=== PATIENT | male | born 1970 | race Caucasian/White ===

== ENCOUNTER 2017-02-22 11:00 | Emergency (ER) | payer OTHER ==
[~2017-02-22] VITALS: Ht 180.3 cm; Wt 83.9 kg
[2017-02-22 11:12] VITALS: BP 114/70
== END 2017-02-22 11:50 | disposition home or self-care (01) ==
LOC: ER 11:01
DX: M25.511 Pain in right shoulder (principal); F17.200 Nicotine dependence, unspecified, uncomplicated
CPT/HCPCS: 73030-TC; A4606; Z7610

== ENCOUNTER 2017-05-16 19:24 | Inpatient (IN) | payer OTHER ==
[~2017-05-16] VITALS: Ht 180.3 cm; Wt 81.6 kg
--- NOTE | 2017-05-16 19:48 | NUR ---
PT BIB SELF AMBULATORY TO ER BED 6, PT C/O ABD PAIN WITH DIARRHEA SINCE MID MORNING. PT PLACED IN GOWN AND ON VS/CENTER MEDICAL SPECIALIST. PT VSS/RESP EVEN UNLABORED/NAD NOTED/SKIN WARM AND DRY/AOX 4. AWAITING MD STERN.
--- NOTE | 2017-05-16 19:51 | NUR ---
AT BEDSIDE FOR EVAL
[2017-05-16] MEDS ORDERED: ONDANSETRON HCL/PF 4 MG/2 ML VIAL ONE (19:53)
--- NOTE | 2017-05-16 19:58 | NUR ---
18G TO LAC USING ASEPTIC TECH, BLOOD DRAWN AND HANDED OVER TO LAB AT BEDSIDE. IV FLUSHES EASILY WITH NS.
[2017-05-16] MEDS ORDERED: IV NS 0.9% 500 ML BAG IV ONE (20:00)
[2017-05-16] MEDS ORDERED: ONDANSETRON HCL/PF 4 MG/2 ML VIAL IVP ONE (20:00)
[2017-05-16 20:01] LABS: BASOPHILS # (AUTO) 0.1 /CMM (0.0-0.2); BASOPHILS % (AUTO) 0.3 % (0.0-2.0); EOSINOPHILS % (AUTO) 0.1 % (0.0-6.0); HEMATOCRIT 52 % (39-51); HEMOGLOBIN 17.3 g/dL (13.5-17.5); LYMPHOCYTES # (AUTO) 1.6 /CMM (0.8-4.8); LYMPHOCYTES % (AUTO) 9.3 % (20.0-44.0); MEAN CORPUSCULAR HEMOGLOBIN 28 PG (26.0-33.0); MEAN CORPUSCULAR HGB CONC 33 g/dl (31.0-36.0); MEAN CORPUSCULAR VOLUME 84 fL (80-96); MONOCYTES # (AUTO) 0.9 /CMM (0.1-1.30); MONOCYTES % (AUTO) 4.9 % (2.0-12.0); NEUTROPHILS # (AUTO) 14.9 /CMM (1.8-8.9); NEUTROPHILS % (AUTO) 85.4 % (43.0-81.0); PLATELET COUNT (AUTO) 285 /CMM (150-450); RDW COEFFICIENT OF VARIATION 12.9 (11.5-15.0); RED BLOOD CELL COUNT(AUTO) 6.23 MIL/uL (4.5-6.0); WHITE BLOOD COUNT (AUTO) 17.5 K/uL (4.3-11.0)
[2017-05-16 20:11] LABS: CALCIUM, SERUM 10.7 mg/dL (8.5-10.1); CREATININE 4.2 mg/dL (0.6-1.3)
--- NOTE | 2017-05-16 20:15 | NUR ---
TECH AT BEDSIDE FOR EKG PER MD ORDERS.
[2017-05-16 20:17] LABS: ALBUMIN 4.7 g/dL (3.4-5.0); BILIRUBIN,DIRECT 0.2 mg/dL (0.0-0.2); BILIRUBIN,TOTAL 0.9 mg/dL (0.2-1.0); TOTAL PROTEIN, SERUM 8.9 g/dL (6.4-8.2)
--- NOTE | 2017-05-16 20:26 | NUR ---
Edwardo amato in [facility] - 05/16/17 at 6 by RADHA MD AT [facility] SPEAKING WITH PT
--- NOTE | 2017-05-16 20:26 | NUR ---
AT BEDSIDE SPEAKING WITH PT.
[2017-05-16] MEDS ORDERED: IV NS 0.9% 1,000 ML IV ONE ×2 (20:30→21:00)
[2017-05-16] MEDS ORDERED: POTASSIUM CHLORIDE 20 MEQ TAB.PRT.SR PO ONE ×2 (20:35→21:00)
--- NOTE | 2017-05-16 20:54 | NUR ---
PT BEING ADM TO TELE ROOM 320 BED 2, REPORT GIVEN TO KAYLA FOR PAPITO.
[2017-05-16] MEDS ORDERED: LISI10TA5 PO (20:55)
[2017-05-16] MEDS ORDERED: ZOLP10TA2 PO (20:55)
[2017-05-16] MEDS ORDERED: DARU1TAB PO (20:55)
[2017-05-16] MEDS ORDERED: DOLU10TA PO (20:55)
[2017-05-16] MEDS ORDERED: IV NS 0.9% 1,000 ML IV PRN (21:03)
[2017-05-16 21:05] VITALS: BP 119/68
--- NOTE | 2017-05-16 21:05 | NUR ---
RN NOTES RECEIVED PATIENT FROM ER FOR DX ACUTE RENAL FAILURE. AO X 3, ABLE TO MAKE NEEDS KNOWN. NO ACUTE DISTRESS NOTED. DENIES PAIN AT THIS TIME IF LYING DOWN ON BED. IV SITE PATENT, INTACT; FLUSHED. SKIN ASSESSMENT DONE. TELE READING SR HR 91. ON LOW BED WITH BILATERAL UPPER SIDE RAILS UP. CALL LIGHT WITHIN EASY REACH. WILL CONTINUE TO MONITOR.
[2017-05-16] MEDS ORDERED: MAG HYDROX/AL HYDROX/SIMETH 30 ML UDC PO PRN (21:30)
[2017-05-16] MEDS ORDERED: HYDROCODONE/APAP 5/325MG 1 EACH TABLET PO PRN (21:30)
[2017-05-16] MEDS ORDERED: MAGNESIUM HYDROXIDE 30 ML UDC PO PRN (21:30)
[2017-05-16] MEDS ORDERED: ONDANSETRON HCL/PF 4 MG/2 ML VIAL IVP PRN (21:30)
[2017-05-16] MEDS ORDERED: ACETAMINOPHEN 325 MG TABLET PO PRN (21:30)
[2017-05-16] MEDS ORDERED: HYDROCODONE/APAP 5/325MG 1 EACH TABLET ONE (21:56)
[2017-05-16 21:57] LABS: CREATINE KINASE MB 61.5 ng/mL (0-3.6)
[2017-05-16] MEDS ORDERED: MISCELLANEOUS MED 1 EA EA XX SCH ×2 (22:00)
[2017-05-16] MEDS: IV NS 0.9% 1,000 ML IV PRN (22:14)
[2017-05-16] MEDS ORDERED: ZOLPIDEM TARTRATE 5 MG TABLET ONE (23:06)
[2017-05-16] MEDS: ZOLPIDEM TARTRATE 5 MG TABLET PO PRN (23:08)
[2017-05-17] VITALS: BP_SYST 122; BP_SYST 132; BP_DIAS 70; BP_DIAS 81
[2017-05-17 04:00] VITALS: BP_SYST 104; BP_SYST 133; BP_DIAS 64; BP_DIAS 80
[2017-05-17 06:40] LABS: BASOPHILS % (AUTO) 0.2 % (0.0-2.0); EOSINOPHILS % (AUTO) 0.3 % (0.0-6.0); HEMATOCRIT 48 % (39-51); HEMOGLOBIN 16.5 g/dL (13.5-17.5); LYMPHOCYTES # (AUTO) 1.5 /CMM (0.8-4.8); LYMPHOCYTES % (AUTO) 12.9 % (20.0-44.0); MEAN CORPUSCULAR HEMOGLOBIN 29 PG (26.0-33.0); MEAN CORPUSCULAR HGB CONC 34 g/dl (31.0-36.0); MEAN CORPUSCULAR VOLUME 84 fL (80-96); MONOCYTES % (AUTO) 8.2 % (2.0-12.0); NEUTROPHILS # (AUTO) 9.3 /CMM (1.8-8.9); NEUTROPHILS % (AUTO) 78.4 % (43.0-81.0); PLATELET COUNT (AUTO) 192 /CMM (150-450); RED BLOOD CELL COUNT(AUTO) 5.76 MIL/uL (4.5-6.0); WHITE BLOOD COUNT (AUTO) 11.9 K/uL (4.3-11.0)
[2017-05-17 06:48] LABS: CALCIUM, SERUM 9.4 mg/dL (8.5-10.1); CREATININE 3.3 mg/dL (0.6-1.3); MAGNESIUM 2.6 mg/dL (1.8-2.4); PHOSPHORUS 4.3 mg/dL (2.5-4.9); POTASSIUM 3.2 mmol/L (3.5-5.1)
--- NOTE | 2017-05-17 06:57 | NUR ---
RN NOTES PATIENT ASLEEP, EASILY AROUSABLE. RESPIRATIONS EVEN. NO SIGNS OF PAIN NOTED. NEEDS ATTENDED. SAFETY PRECAUTIONS AND COMFORT MEASURES IN PLACE. WILL GIVE REPORT TO DAY SHIFT FOR CONTINUITY OF CARE.
--- NOTE | 2017-05-17 07:00 | NUR ---
RN INITIAL NOTES: PATIENT RESTING IN BED. ALERT ORIENTED X4. DENIES PAIN AT THE MOMENT. NONLABORED BREATHING NOTED ON ROOM AIR. IV SITE PATENT AND INTACT. WILL CONTINUE TO MONITOR PATIENT.
[2017-05-17 07:04] LABS: THYROID STIMULATING HORMONE 2.251 uIU/mL (0.358-3.74)
[2017-05-17 07:21] LABS: CREATINE KINASE MB 67.4 ng/mL (0-3.6)
[2017-05-17] MEDS: FAMOTIDINE (20 MG) 20 MG TABLET PO SCH (08:13)
[2017-05-17 09:20] LABS: BILIRUBIN,URINE NEGATIVE (NEGATIVE); BLOOD, URINE 3+ Ery/uL (NEGATIVE); KETONES,URINE TRACE (NEGATIVE); LEUKOCYTE ESTERASE ,URINE NEGATIVE (NEGATIVE); NITRITE, URINE NEGATIVE (NEGATIVE); PH,URINE 5.5 (5.0-8.0); PROTEIN,URINE 1+ mg/dl (NEGATIVE); UGLUCOSE 1+ mg/dL (NEGATIVE); UROBILINOGEN,URINE 0.2 EU/dL (0.2)
[2017-05-17 09:31] LABS: COLOR,URINE YELLOW (YELLOW)
[2017-05-17 09:33] LABS: APPEARANCE,URINE CLEAR (CLEAR)
[2017-05-17 09:35] LABS: BACTERIA,URINE Rare /HPF (None Seen); RBC,URINE 0-2 /HPF (0-2); SQUAMOUS EPITHELIAL CELL,UR Rare /HPF (None Seen)
[2017-05-17 09:36] LABS: COARSE GRANULAR CASTS,URINE Few /LPF (None Seen)
[2017-05-17] MEDS: IV NS 0.9% 1,000 ML IV PRN ×2 (10:14→16:00)
--- NOTE | 2017-05-17 11:21 | NUR ---
WOUND CARE CONSULT: PT PRESENTS WITH CURRENT JOSE SCORE OF 22. PT INDEPENDENT WITH MOBILITY AND CONTINENT. SMALL WHITE AREA ON RT GREAT TOENAIL. PT STATES IS TAKING FLUCONAZOLE PER HIS PMD. DEFER TO MD FOR TOENAIL. WILL SEE PRN.
[2017-05-17 11:48] VITALS: BP 113/78
[2017-05-17] MEDS ORDERED: POTASSIUM CHLORIDE 20 MEQ TAB.PRT.SR PO SCH (12:00)
[2017-05-17 16:00] VITALS: BP_SYST 124; BP_SYST 97; BP_DIAS 63; BP_DIAS 75
--- NOTE | 2017-05-17 17:21 | NUR ---
RN NOTES: DR CR ORDERED 20 MED KDUR TIMES 1, TO REPLACE POTASSIUM LEVELS
[2017-05-17] MEDS ORDERED: POTASSIUM CHLORIDE 20 MEQ TAB.PRT.SR PO ONE (17:30)
--- NOTE | 2017-05-17 19:30 | NUR ---
MS RN NOTE: PATIENT RESTING IN BED, NO ACUTE DISTRESS NOTED. BREATHING EVEN AND UNLABORED, NO SOB NOTED. IV TO LAC IN PLACE, INFUSING NS AT 200 ML/HR. BED LOCKED AND IN LOWEST POSITION, CALL LIGHT IN REACH. WILL CONTINUE TO MONITOR.
--- NOTE | 2017-05-17 19:49 | NUR ---
RN CLOSING NOTES: PATIENT RESTING IN BED. ALERT ORIENTED X4. DENIES PAIN AT THE MOMENT. NONLABORED BREATHING NOTED ON ROOM AIR. IV SITE PATENT AND INTACT.IV FLUIDS RUNNING, STOOL SENT FOR CDIFF. DOCTOR SHAYE AWARE OF PATIENT'S HISTORY OF TAKING FLUCONAZOLE 200 MG, X2 TABLETS EVERY 8 DAYS FOR 4 YEARS. DURING SHIFT, PATIENT KEPT CLEAN AND DRY. ENCOURAGED TO TURN AND REPOSITION EVERY 2 HOURS. MEDICATIONS BROUGHT FROM HOME WERE TAKEN TO PHARMACY. BED IN LOWEST LOCKED POSITION. WILL CONTINUE TO MONITOR PATIENT.
[2017-05-17] MEDS ORDERED: TIVICAY 50MG TABLET PO SCH (20:00)
[2017-05-17] MEDS: ZOLPIDEM TARTRATE 5 MG TABLET PO PRN (20:29)
--- NOTE | 2017-05-17 20:45 | NUR ---
MS RN NOTE: PATIENT REQUEST FOR SLEEPING MEDICATION. AMBIEN 10MG ORAL GIVEN PER MD ORDER. WILL CONTINUE TO MONITOR.
[2017-05-17 20:47] VITALS: BP_SYST 104; BP_SYST 125; BP_DIAS 64; BP_DIAS 80
[2017-05-18] MEDS: IV NS 0.9% 1,000 ML IV PRN ×2 (03:10→09:02)
--- NOTE | 2017-05-18 06:05 | NUR ---
MS RN NOTE: PATIENT RESTING IN BED, NO ACUTE DISTRESS NOTED. BREATHING EVEN AND UNLABORED, NO SOB NOTED. IV TO LAC IN PLACE, INFUSING NS AT 200 ML/HR. PATIENT CONTINUES TO HAVE EPISODES OF DIARRHEA, WITH 3 LOOSE BM THROUGHOUT SHIFT. BED LOCKED AND IN LOWEST POSITION, CALL LIGHT IN REACH. WILL ENDORSE TO DAY NURSE TO CONTINUE WITH PLAN OF CARE.
[2017-05-18 07:53] LABS: BASOPHILS % (AUTO) 0.2 % (0.0-2.0); EOSINOPHILS # (AUTO) 0.1 /CMM (0.0-0.7); EOSINOPHILS % (AUTO) 1.3 % (0.0-6.0); HEMATOCRIT 42 % (39-51); HEMOGLOBIN 14.2 g/dL (13.5-17.5); LYMPHOCYTES % (AUTO) 19.4 % (20.0-44.0); MEAN CORPUSCULAR HEMOGLOBIN 29 PG (26.0-33.0); MEAN CORPUSCULAR HGB CONC 34 g/dl (31.0-36.0); MEAN CORPUSCULAR VOLUME 85 fL (80-96); MONOCYTES # (AUTO) 0.4 /CMM (0.1-1.30); MONOCYTES % (AUTO) 8.2 % (2.0-12.0); NEUTROPHILS # (AUTO) 3.6 /CMM (1.8-8.9); NEUTROPHILS % (AUTO) 70.9 % (43.0-81.0); PLATELET COUNT (AUTO) 147 /CMM (150-450); RDW COEFFICIENT OF VARIATION 14.1 (11.5-15.0); RED BLOOD CELL COUNT(AUTO) 4.94 MIL/uL (4.5-6.0); WHITE BLOOD COUNT (AUTO) 5.1 K/uL (4.3-11.0)
[2017-05-18 08:00] VITALS: BP 119/70
[2017-05-18] MEDS: FAMOTIDINE (20 MG) 20 MG TABLET PO SCH (08:18)
[2017-05-18 08:31] LABS: CALCIUM, SERUM 8.3 mg/dL (8.5-10.1); CREATININE 1.5 mg/dL (0.6-1.3); PHOSPHORUS 2.5 mg/dL (2.5-4.9); POTASSIUM 3.5 mmol/L (3.5-5.1)
--- NOTE | 2017-05-18 15:55 | NUR ---
DISTRICT ATTORNEY NOTES DISCHARGE INSTRUCTIONS GIVEN TO THE PATIENT AND ABLE TO UNDERSTAND. ALL PAPERWORK SIGNED AND BELONGINGS ACCOUNTED FOR AND MEDICATIONS RETURNED. IV DISCONNECTED AND PRESSURE APPLIED, NO BLEEDING NOTED AT THE SITE. FLU SHOT NOT NEEDED PATIENT WAS VACCINATED IN APRIL. PATIENT LEFT IN STABLE CONDITION, AMBULATORY, WITH FAMILY. DISCHARGED TO HOME. NO SOB OR DISTRESS, PATIENT DENIES PAIN.
== END 2017-05-18 15:51 | disposition home or self-care (01) | DRG 683 ==
LOC: ER 19:27 → TELE 20:42 → MED 05-17 10:23
PROVIDERS: ADMIT Nurse Practitioner Acute Care; ATTEND Nurse Practitioner Acute Care
DX: N17.0 Acute kidney failure with tubular necrosis (principal); M62.82 Rhabdomyolysis; I50.9 Heart failure, unspecified; I11.0 Hypertensive heart disease with heart failure; E87.6 Hypokalemia; E86.0 Dehydration; D72.829 Elevated white blood cell count, unspecified; E78.5 Hyperlipidemia, unspecified; Z79.899 Other long term (current) drug therapy
CPT/HCPCS: 36415; 71010-TC; 76700-TC; 80048-TC; 80061-TC; 80076-TC; 81000-TC; 82550-TC; 82553-TC; 83690-TC; 83735-TC; 84100-TC; 84443-TC; 85025-TC; 87081-TC; A4606; J2405; J7030; J7040; Z7610

== ENCOUNTER 2017-05-25 13:57 | Outpatient (CLI) | payer OTHER, MEDICAID ==
[~2017-05-25 13:57] MED LIST: DARU1TAB PO; DOLU10TA PO; LISI10TA5 PO; ZOLP10TA2 PO
[2017-05-25 14:01] VITALS: BP 127/72
== END 2017-05-25 23:59 | disposition home or self-care (01) ==
LOC: MSC 13:57
PROVIDERS: ATTEND Internal Medicine
DX: Z51.89 Encounter for other specified aftercare (principal); I10 Essential (primary) hypertension; G47.00 Insomnia, unspecified; F41.8 Other specified anxiety disorders

== ENCOUNTER 2018-03-13 18:11 | Inpatient (IN) | payer OTHER, BC ==
[~2018-03-13] VITALS: Ht 177.8 cm; Wt 88.1 kg
[2018-03-13 18:46] LABS: BASOPHILS # (AUTO) 0.1 /CMM (0.0-0.2); BASOPHILS % (AUTO) 0.9 % (0.0-2.0); EOSINOPHILS % (AUTO) 1.1 % (0.0-6.0); HEMATOCRIT 46 % (39-51); HEMOGLOBIN 15.3 g/dL (13.5-17.5); LYMPHOCYTES # (AUTO) 1.9 /CMM (0.8-4.8); LYMPHOCYTES % (AUTO) 19.4 % (20.0-44.0); MEAN CORPUSCULAR HEMOGLOBIN 27 PG (26.0-33.0); MEAN CORPUSCULAR HGB CONC 34 g/dl (31.0-36.0); MEAN CORPUSCULAR VOLUME 81 fL (80-96); MONOCYTES % (AUTO) 10.2 % (2.0-12.0); NEUTROPHILS # (AUTO) 6.9 /CMM (1.8-8.9); NEUTROPHILS % (AUTO) 68.4 % (43.0-81.0); PLATELET COUNT (AUTO) 270 /CMM (150-450); RDW COEFFICIENT OF VARIATION 13.7 (11.5-15.0); RED BLOOD CELL COUNT(AUTO) 5.62 MIL/uL (4.5-6.0)
[2018-03-13] MEDS ORDERED: MAG HYDROX/AL HYDROX/SIMETH 30 ML UDC ONE (18:47)
[2018-03-13 18:55] LABS: CALCIUM, SERUM 8.8 mg/dL (8.5-10.1); CARBON DIOXIDE 23 mmol/L (21-32); CHLORIDE 96 mmol/L (98-107); CREATININE 6.6 mg/dL (0.6-1.3); GLUCOSE 108 mg/dL (74-106); POTASSIUM 3.4 mmol/L (3.5-5.1); SODIUM SERUM 133 mmol/L (136-145); UREA NITROGEN, BLOOD 55 mg/dL (7-18)
[2018-03-13] MEDS ORDERED: MAG HYDROX/AL HYDROX/SIMETH 30 ML UDC PO ONE (19:00)
[2018-03-13] MEDS ORDERED: IV NS 0.9% 1,000 ML BAG IV ONE (19:00)
[2018-03-13 19:01] LABS: ALANINE AMINOTRANSFERASE 43 U/L (12-78); ALBUMIN 3.8 g/dL (3.4-5.0); ALKALINE PHOSPHATASE 94 U/L (46-116); ASPARTATE AMINOTRANSFERASE 38 U/L (15-37); BILIRUBIN,DIRECT 0.1 mg/dL (0.0-0.2); BILIRUBIN,TOTAL 0.5 mg/dL (0.2-1.0); LIPASE 143 U/L (73-393); TOTAL PROTEIN, SERUM 7.8 g/dL (6.4-8.2)
[2018-03-13 19:03] LABS: TROPONIN I < 0.017 ng/mL (0.00-0.056)
[2018-03-13] MEDS ORDERED: POTASSIUM CHLORIDE 20 MEQ TAB.PRT.SR PO ONE (19:30)
[2018-03-13 19:45] LABS: ALCOHOL, BLOOD < 3 mg/dL (0-0)
[2018-03-13 19:47] LABS: APPEARANCE,URINE Cloudy (CLEAR); BILIRUBIN,URINE SMALL (NEGATIVE); BLOOD, URINE Large Ery/uL (NEGATIVE); COLOR,URINE Dark (YELLOW); KETONES,URINE Negative (NEGATIVE); LEUKOCYTE ESTERASE ,URINE Negative (NEGATIVE); NITRITE, URINE Negative (NEGATIVE); PH,URINE 5.5 (5.0-8.0); PROTEIN,URINE >=300 mg/dl (NEGATIVE); UGLUCOSE 100 MG/DL mg/dL (NEGATIVE); UROBILINOGEN,URINE 0.2 EU/dL (0.2)
[2018-03-13 19:55] LABS: BACTERIA,URINE 3+ /HPF (None Seen); MUCUS,URINE Moderate /LPF (None Seen); SQUAMOUS EPITHELIAL CELL,UR None Seen /HPF (None Seen); WBC,URINE NONE SEEN /HPF (0-3)
--- NOTE | 2018-03-13 20:00 | NUR ---
PT ASSIGNED TO BED 322-2
--- NOTE | 2018-03-13 20:10 | NUR ---
MANAGER COMPETITIVE INTELLIGENCE NOTES Patient came to unit via gurney. Patient is alert, oriented x 4. Breathing even and unlabored. Not in any distress. Swartz catheter in place, draining clear yellow urine. Peripheral IV in place. IV site patent and intact. Tele monitor in place, sinus rhythm 91. No complaints of discomfort as of this time. Patient stated that he is a former smoker, he quit smoking last July 2017. No skin issues. Patient able to walk to the bathroom with standby assist. Reminded him to call whenever he needs to go as a safety precaution. Patient denies drinking and using of recreational drugs. He denies pain upon urination. Skin intact. Oriented to call anderson. Safety measures in place. Call anderson within reach. Bed in low locked position. Will continue to monitor
[2018-03-13 20:12] LABS: CREATINE KINASE, TOTAL 1063 U/L (39-308)
[2018-03-13] MEDS ORDERED: ACETAMINOPHEN 325 MG TABLET PO PRN (20:30)
[2018-03-13] MEDS ORDERED: Z GUARD REMEDY 2 OZ OINT TP PRN (20:30)
[2018-03-13] MEDS ORDERED: ONDANSETRON HCL/PF 4 MG/2 ML VIAL IVP PRN (20:30)
[2018-03-13] MEDS ORDERED: MAGNESIUM HYDROXIDE 30 ML UDC PO PRN (20:30)
[2018-03-13] MEDS ORDERED: HYDROCODONE/APAP 5/325MG 1 EACH TABLET PO PRN (20:30)
[2018-03-13 21:15] VITALS: BP 114/66
[2018-03-13 21:46] LABS: LYMPHOCYTES % (MANUAL) 21 % (16-48); MONOCYTES % (MANUAL) 8 % (0-11.0); NEUTROPHILS % (MANUAL) 71 (42-76)
[2018-03-13] MEDS: IV NS 0.9% 1,000 ML IV SCH (22:07)
[2018-03-13] MEDS: ZOLPIDEM TARTRATE 10 MG TABLET PO PRN (22:25)
[2018-03-13] MEDS: ZOLPIDEM TARTRATE 5 MG TABLET PO PRN (22:25)
--- NOTE | 2018-03-13 22:27 | NUR ---
CARAMEL CANDY MAKER HELPER NOTES Patient requested for ambien. He takes 15mg at home. Ambien 15mg given as ordered
--- NOTE | 2018-03-13 22:50 | NUR ---
DIE MOUNTER NOTES Patient went to the bathroom, reminded him to call for assistance as a safety precaution. As per patient," I'm okay. I don't feel unbalanced when I stand up." Patient gave stool sample. Sample for lab to chart picker
[2018-03-14] VITALS: BP 115/67
[2018-03-14 04:00] VITALS: BP_SYST 101; BP_SYST 93; BP_SYST 97; BP_DIAS 55; BP_DIAS 59; BP_DIAS 60
[2018-03-14] MEDS: IV NS 0.9% 1,000 ML IV SCH (05:50)
[2018-03-14 06:15] LABS: BASOPHILS % (AUTO) 0.4 % (0.0-2.0); EOSINOPHILS % (AUTO) 0.9 % (0.0-6.0); HEMATOCRIT 46 % (39-51); HEMOGLOBIN 14.9 g/dL (13.5-17.5); LYMPHOCYTES % (AUTO) 17.6 % (20.0-44.0); MEAN CORPUSCULAR HEMOGLOBIN 27 PG (26.0-33.0); MEAN CORPUSCULAR HGB CONC 32 g/dl (31.0-36.0); MEAN CORPUSCULAR VOLUME 84 fL (80-96); MONOCYTES # (AUTO) 0.6 /CMM (0.1-1.30); MONOCYTES % (AUTO) 10.4 % (2.0-12.0); NEUTROPHILS # (AUTO) 4.2 /CMM (1.8-8.9); NEUTROPHILS % (AUTO) 70.7 % (43.0-81.0); PLATELET COUNT (AUTO) 200 /CMM (150-450); RDW COEFFICIENT OF VARIATION 14.1 (11.5-15.0); RED BLOOD CELL COUNT(AUTO) 5.48 MIL/uL (4.5-6.0)
[2018-03-14 06:33] LABS: CALCIUM, SERUM 8.3 mg/dL (8.5-10.1); CREATININE 4.5 mg/dL (0.6-1.3); MAGNESIUM 2.7 mg/dL (1.8-2.4); POTASSIUM 3.6 mmol/L (3.5-5.1)
--- NOTE | 2018-03-14 07:21 | NUR ---
MICROSYSTEMS ENGINEER OPENING NOTES RECEIVED PATIENT AWAKE IN BED IN NO ACUTE SIGNS OF DISTRESS. A/O X4. ABLE TO COMMUNICATE VERBALLY WITH NO C/O PAIN OR DISCOMFORTS AT THIS TIME. ON ROOM AIR, BREATHING EVEN AND UNLABORED. ON TELE MONITORING WITH CURRENT READING OF SR WITH HR OF 88, NO C/O OF CARDIAC DISTRESS VOICED. IV ACCESS ON LEFT FA INTACT AND PATENT, IVF OF NS @ 125 ML/HR INFUSING WELL, NO S/S OF INFILTRATIONS NOTED. CAMPOS IN PLACE DRAINING SAURAV COLORED URINE TO URINARY BAG. SAFETY MEASURES IN PLACE. BED IN LOW/LOCKED POSITION WITH SR UP X2. CALL LIGHT WITHIN EASY REACH. REMINDED PT TO CALL FOR ASSISTANCE WHEN OOB. WILL CONTINUE TO MONITOR.
--- NOTE | 2018-03-14 07:24 | NUR ---
AVIATION ENGINEER CLOSING NOTES Patient in bed, alert, oriented x 4. No change. On Tele monitor, sinus rhythm 83. Peripheral IV infusing at 125 mL/hr. No complaints as of this time. All needs attended to. All due medications given as ordered. Safety measures in place. Call anderson within reach. Bed in low, locked position. Will endorse PAPITO to oncoming RN.
[2018-03-14 08:00] VITALS: BP 104/65
--- NOTE | 2018-03-14 08:49 | NUR ---
RN NOTES PATIENT CHECKED FOR ORTHOSTATIC BP THIS MORNING WITH THE FF RESULTS: LYING 104/65, SITTING 104/63 AND STANDING 115/56. PATIENT WITH NO C/O DIZZINESS, LIGHTHEADEDNESS OR FAINTING VOICED. WILL CONTINUE TO MONITOR.
[2018-03-14] MEDS ORDERED: LISINOPRIL (10MG) 10 MG TABLET PO SCH (09:00)
--- NOTE | 2018-03-14 10:12 | NUR ---
RN NOTES PATIENT SEEN BY DR BUCIO WITH ORDER TO COLLECT URINE SPECIMEN TODAY AND TOMORROW. BLOOD WORKS TOMORROW. CAMPOS CATHETER DISCONTINUED AND PATIENT WENT TO BATHROOM TO URINATE AFTER. URINE SPECIMEN COLLECTED AND CALLED LAB TO PICK-UP SPECIMEN FROM [facility]. WILL CONTINUE TO MONITOR.
--- NOTE | 2018-03-14 10:54 | NUR ---
RN NOTES PATIENT'S 2 HOME MEDS BROUGHT BY HIS FRIEND AND I GAVE IT TO PHARMACY.
[2018-03-14] MEDS: IV NS 0.9% 1,000 ML IV PRN ×3 (11:18→21:36)
[2018-03-14 12:21] LABS: APPEARANCE,URINE SL CLOUDY (CLEAR); BILIRUBIN,URINE NEGATIVE (NEGATIVE); BLOOD, URINE 3+ Ery/uL (NEGATIVE); COLOR,URINE YELLOW (YELLOW); KETONES,URINE NEGATIVE (NEGATIVE); LEUKOCYTE ESTERASE ,URINE 1+ (NEGATIVE); NITRITE, URINE NEGATIVE (NEGATIVE); PROTEIN,URINE 1+ mg/dl (NEGATIVE); UGLUCOSE 1+ mg/dL (NEGATIVE); UROBILINOGEN,URINE 0.2 EU/dL (0.2)
[2018-03-14] MEDS: Darunavir/Cobicistat (Prezcobix 800 mg-150 mg Tablet) PO SCH (12:24)
[2018-03-14] MEDS: DOLUTEGRAVIR 10 MG PO SCH (12:25)
[2018-03-14 12:26] LABS: CREATININE, URINE 47.8 MG/DL (30.0-125.0)
[2018-03-14 12:53] LABS: RBC,URINE 51-80 /HPF (0-2)
[2018-03-14 12:54] LABS: BACTERIA,URINE Few /HPF (None Seen); WBC,URINE 21-50 /HPF (0-3)
[2018-03-14 12:55] LABS: HYALINE CASTS, URINE Few /LPF (None Seen); SQUAMOUS EPITHELIAL CELL,UR None Seen /HPF (None Seen)
[2018-03-14 13:18] LABS: EOSINOPHIL,URINE None Seen
--- NOTE | 2018-03-14 13:33 | NUR ---
RN NOTES PATIENT U/A RESULTS SHOWS URINE WITH HIGH WBC 21-50, URINE LEUCOCYTE ESTERASE 1+, HIGH URINE RBC 51-80. URINE PROTEIN 62.0. DR VIDAL MADE AWARE. NO NEW ORDER MADE AT THIS TIME. WILL CONTINUE TO MONITOR.
[2018-03-14] MEDS: SULFAMETH/TRIMETH 800/160 MG 1 UDTAB TABLET PO SCH (14:02)
--- NOTE | 2018-03-14 14:07 | NUR ---
RN NOTES PATIENT COMPLAINED OF PAIN/DISCOMFORTS ON HIS PERINEUM WITH SCALE OF 6/10, PRN NORCO 5/325MG PO GIVEN ORDERED. PT ALSO STARTED ON ABT BACTRIM DS TAB 800/160MG TAB Q 12HRS FOR UTI. PT IS AFEBRILE. WILL CONTINUE TO MONITOR.
[2018-03-14 16:00] VITALS: BP 122/66
--- NOTE | 2018-03-14 19:10 | NUR ---
MS RN OPENING NOTE Patient was seen sitting up in bed AAOx4, breathing on RA with no SOB, and no signs of acute distress. NS at 125ml/hr is running through the left AC with no signs of leaking or infiltration. Patient is currently comfortable with no immediate needs or concerns. Bed is low/locked, two side rails up, and call anderson within reach. Will continue to monitor.
--- NOTE | 2018-03-14 19:23 | NUR ---
MS RN OPENING NOTES PATIENT RESTING IN BED AT MODERATE HIGH BACKREST POSITION. A/O X4. ABLE TO VERBALIZED NEEDS AND CONCERNS. ON ROOM AIR, BREATHING EVEN AND UNLABORED. IV ACCESS ON LEFT FA INTACT AND PATENT, IVF OF NS @ 125 ML/HR INFUSING WELL, NO S/S OF INFILTRATIONS NOTED. ALL SAFETY MEASURES KEPT IN PLACE. BED IN LOW/LOCKED POSITION WITH SR UP X2. CALL LIGHT WITHIN EASY REACH. ALL NEEDS AND CARE ATTENDED WELL. ENDORSED TO SHUTTLE FINAL INSPECTOR NURSE FOR PAPITO
[2018-03-14 20:00] VITALS: BP 109/68
[2018-03-14] MEDS: ZOLPIDEM TARTRATE 10 MG TABLET PO PRN (21:35)
[2018-03-14] MEDS: ZOLPIDEM TARTRATE 5 MG TABLET PO PRN (21:35)
--- NOTE | 2018-03-14 21:40 | NUR ---
MS RN NOTE - Ambien Patient requested Ambien for sleep and states that he takes this regularly at home. 15mg PO Ambien given to patient as ordered for sleep aid at night. Will continue to monitor.
--- NOTE | 2018-03-15 04:54 | NUR ---
MS RN NOTE - "Undo" NS administration in eMAR Clicked "Undo" administration of NS at 125ml/hr in eMAR for 03/14/18 at 21:35. Co-worker, Linda (ZAIRA) hung new bag of NS to help me while I was busy; I did not realize at the time that she had already scanned the new bag of NS in eMAR.
[2018-03-15] MEDS: IV NS 0.9% 1,000 ML IV PRN (05:00)
[2018-03-15 06:08] LABS: CREATININE, URINE 38.7 MG/DL (30.0-125.0); URINE TOTAL PROTEIN 52.8 mg/dL (0-11.9)
[2018-03-15 06:09] LABS: APPEARANCE,URINE CLEAR (CLEAR); BILIRUBIN,URINE NEGATIVE (NEGATIVE); BLOOD, URINE 1+ Ery/uL (NEGATIVE); COLOR,URINE OTHER (YELLOW); KETONES,URINE NEGATIVE (NEGATIVE); LEUKOCYTE ESTERASE ,URINE NEGATIVE (NEGATIVE); NITRITE, URINE NEGATIVE (NEGATIVE); PROTEIN,URINE 1+ mg/dl (NEGATIVE); UGLUCOSE 2+ mg/dL (NEGATIVE); UROBILINOGEN,URINE 0.2 EU/dL (0.2)
[2018-03-15 06:20] LABS: BACTERIA,URINE Few /HPF (None Seen); SQUAMOUS EPITHELIAL CELL,UR Rare /HPF (None Seen); WBC,URINE 0-2 /HPF (0-3)
[2018-03-15 06:36] LABS: BASOPHILS % (AUTO) 0.6 % (0.0-2.0); EOSINOPHILS % (AUTO) 2.6 % (0.0-6.0); HEMATOCRIT 38 % (39-51); LYMPHOCYTES # (AUTO) 1.5 /CMM (0.8-4.8); LYMPHOCYTES % (AUTO) 33.9 % (20.0-44.0); MEAN CORPUSCULAR HEMOGLOBIN 26 PG (26.0-33.0); MEAN CORPUSCULAR HGB CONC 31 g/dl (31.0-36.0); MEAN CORPUSCULAR VOLUME 84 fL (80-96); MONOCYTES # (AUTO) 0.4 /CMM (0.1-1.30); MONOCYTES % (AUTO) 9.4 % (2.0-12.0); NEUTROPHILS # (AUTO) 2.4 /CMM (1.8-8.9); NEUTROPHILS % (AUTO) 53.5 % (43.0-81.0); PLATELET COUNT (AUTO) 184 /CMM (150-450); RDW COEFFICIENT OF VARIATION 14.1 (11.5-15.0); RED BLOOD CELL COUNT(AUTO) 4.53 MIL/uL (4.5-6.0); WHITE BLOOD COUNT (AUTO) 4.4 K/uL (4.3-11.0)
[2018-03-15 06:37] LABS: EOSINOPHIL,URINE Rare
[2018-03-15 06:50] LABS: HEMOGLOBIN 12.8 g/dL (13.5-17.5)
[2018-03-15 07:01] LABS: ALBUMIN 2.8 g/dL (3.4-5.0); BILIRUBIN,TOTAL 0.2 mg/dL (0.2-1.0); CALCIUM, SERUM 8.4 mg/dL (8.5-10.1); CREATININE 1.9 mg/dL (0.6-1.3); MAGNESIUM 1.9 mg/dL (1.8-2.4); POTASSIUM 3.6 mmol/L (3.5-5.1); TOTAL PROTEIN, SERUM 6.3 g/dL (6.4-8.2)
--- NOTE | 2018-03-15 07:30 | NUR ---
MS RN RECEIVED ON BED, AWAKE,ALERT,ORIENTED X4,NOT IN ANY FORM OF DISTRESS, RESPIRATIONS EVEN AND UNLABORED,NO SOB NOTED. LUNGS ARE CLEAR,ABDOMEN SOFT,POSITIVE BOWEL SOUNDS, DENIES PAIN AT THIS TIME.
--- NOTE | 2018-03-15 07:41 | NUR ---
MS RN CLOSING NOTE Patient remains AAOx4, breathing on RA with no SOB, and no signs of acute distress. Patient slept well overnight with no complications. Vitals WNL. NS at 125ml/hr is running through the left AC with no signs of leaking or infiltration. Call anderson is within reach, and all patient needs have been attended to this shift. Patient care endorsed to day shift nurse.
[2018-03-15 08:00] VITALS: BP 112/73
--- NOTE | 2018-03-15 09:00 | NUR ---
MS MENESES BREAKFAST SERVED,DUE MEDS GIVEN,TOLERATED WELL..
[2018-03-15] MEDS: Darunavir/Cobicistat (Prezcobix 800 mg-150 mg Tablet) PO SCH (09:14)
[2018-03-15] MEDS: SULFAMETH/TRIMETH 800/160 MG 1 UDTAB TABLET PO SCH (09:14)
[2018-03-15] MEDS: DOLUTEGRAVIR 10 MG PO SCH (09:14)
--- NOTE | 2018-03-15 10:00 | NUR ---
MS RN READY TO GO HOME W/ FRIEND ,WAITING FOR KRYSTA'S PRESCRIPTION.
[2018-03-15] MEDS ORDERED: SULF1TAB48 PO (10:22)
--- NOTE | 2018-03-15 10:30 | NUR ---
MS RN DISACHARGE INSTRUCTIONS GIVEN AND UNDERSTOOD, WENT HOME ACCOMPANIED BY FRIEND.
[2018-03-16 12:11] LABS: *SPE A/G RATIO 1.1 (0.7-1.7); *SPE ALBUMIN 3.1 g/dL (2.9-4.4); *SPE ALPHA-1-GLOBULIN 0.2 g/dL (0.0-0.4); *SPE ALPHA-2-GLOBULIN 0.8 g/dL (0.4-1.0); *SPE BETA GLOBULIN 0.8 g/dL (0.7-1.3); *SPE GLOBULIN, TOTAL 2.7 g/dL (2.2-3.9); *SPE M-SPIKE Not Observed g/dL (Not Observed); *SPEGAMMA GLOBULIN 0.9 g/dL (0.4-1.8); PTH, INTACT 30 pg/mL (15-65)
== END 2018-03-15 10:15 | disposition home or self-care (01) | DRG 557 ==
LOC: ER 18:13 → TELE 20:09 → MED 03-14 10:43
PROVIDERS: ADMIT Family Medicine; ATTEND Family Medicine
DX: M62.82 Rhabdomyolysis (principal); N17.0 Acute kidney failure with tubular necrosis; N18.5 Chronic kidney disease, stage 5; E87.1 Hypo-osmolality and hyponatremia; N39.0 Urinary tract infection, site not specified; A08.4 Viral intestinal infection, unspecified; E86.9 Volume depletion, unspecified; I12.9 Hypertensive chronic kidney disease with stage 1 through stage 4 chronic kidney disease, or unspecified chronic kidney disease; E87.6 Hypokalemia; Z87.891 Personal history of nicotine dependence; R55 Syncope and collapse; Z85.828 Personal history of other malignant neoplasm of skin; R73.9 Hyperglycemia, unspecified; F15.90 Other stimulant use, unspecified, uncomplicated
CPT/HCPCS: 36415; 71045-TC; 80048-TC; 80053-TC; 80061-TC; 80076-TC; 80305; 81000-TC; 82550-TC; 82553-TC; 82570-TC; 83690-TC; 83735-TC; 83970; 84100-TC; 84155; 84155-TC; 84165; 84300-TC; 84484-TC; 85025-TC; 87045-TC; 87081-TC; 87086-TC; 87177; 87209; 89055; 93307-TC; 93880-TC; A4606; G0480; J7030; Z7610

== ENCOUNTER 2021-01-06 18:13 | Inpatient (IN) | payer BC, OTHER ==
[~2021-01-06] VITALS: Ht 180.3 cm; Wt 92.1 kg
[~2021-01-06 18:13] MED LIST changes: +LISI10TA29 PO; -LISI10TA5 PO; +SULF1TAB48 PO
--- NOTE | 2021-01-06 18:20 | NUR ---
genital pain "staph infection", 10/10 pain scale, since yesterday. Patient a/ox4, breathing even and unlabored, ambulatory with steady gait. present at bedside. Dr. Reyna at bedside for eval.
[2021-01-06] MEDS ORDERED: CEFEPIME 1 GM in IV D5W 50 ML IV ONE (18:30)
[2021-01-06] MEDS ORDERED: IV NS 0.9% 1,000 ML BAG IV ONE (18:30)
[2021-01-06] MEDS ORDERED: VANCOMYCIN 1 GM in IV D5W 250 ML IV ONE (18:30)
--- NOTE | 2021-01-06 18:30 | NUR ---
IV LINE ESTABLISHED, BLOOD DRAWN AND SENT TO LAB.
[2021-01-06 18:39] LABS: BASOPHILS % (AUTO) 0.3 % (0.0-2.0); EOSINOPHILS % (AUTO) 0.1 % (0.0-6.0); HEMATOCRIT 44 % (39-51); HEMOGLOBIN 14.7 g/dL (13.5-17.5); LYMPHOCYTES % (AUTO) 6.4 % (20.0-44.0); MEAN CORPUSCULAR HGB CONC 34 g/dl (31.0-36.0); MEAN CORPUSCULAR VOLUME 83 fL (80-96); MONOCYTES # (AUTO) 0.9 K/uL (0.1-1.30); MONOCYTES % (AUTO) 5.7 % (2.0-12.0); NEUTROPHILS # (AUTO) 13.2 K/uL (1.8-8.9); NEUTROPHILS % (AUTO) 87.5 % (43.0-81.0); PLATELET COUNT (AUTO) 197 K/uL (150-450); RED BLOOD CELL COUNT(AUTO) 5.27 MIL/uL (4.5-6.0); WHITE BLOOD COUNT (AUTO) 15.1 K/uL (4.3-11.0)
[2021-01-06] MEDS ORDERED: SULF1TAB48 PO (18:50)
[2021-01-06 18:54] LABS: ALANINE AMINOTRANSFERASE 37 U/L (12-78); ALBUMIN 3.9 g/dL (3.4-5.0); ALKALINE PHOSPHATASE 89 U/L (46-116); ASPARTATE AMINOTRANSFERASE 37 U/L (15-37); BILIRUBIN,DIRECT 0.2 mg/dL (0.0-0.2); BILIRUBIN,TOTAL 0.7 mg/dL (0.2-1.0); CALCIUM, SERUM 9.2 mg/dL (8.5-10.1); CARBON DIOXIDE 21 mmol/L (21-32); CHLORIDE 97 mmol/L (98-107); CREATININE 1.2 mg/dL (0.6-1.3); GLUCOSE 100 mg/dL (74-106); SODIUM SERUM 131 mmol/L (136-145); TOTAL PROTEIN, SERUM 7.9 g/dL (6.4-8.2); UREA NITROGEN, BLOOD 16 mg/dL (7-18)
[2021-01-06] MEDS ORDERED: ATOR10TA PO (18:55)
[2021-01-06] MEDS ORDERED: IOHEXOL-300 100 ML VIAL IV ONE (19:09)
[2021-01-06] MEDS ORDERED: IV NS 0.9% 250 ML IV ONE (19:09)
[2021-01-06] MEDS ORDERED: CT SWABBABLE VALVE TRANS SET 1 EA INFUS.SET MC ONE (19:09)
[2021-01-06 19:19] LABS: BILIRUBIN,URINE Negative (NEGATIVE); COLOR,URINE YELLOW (YELLOW); LEUKOCYTE ESTERASE ,URINE Negative (NEGATIVE); NITRITE, URINE Negative (NEGATIVE); PH,URINE 6.5 (5.0-8.0); PROTEIN,URINE 30 mg/dl (NEGATIVE); UGLUCOSE 250 MG/DL mg/dL (NEGATIVE); UROBILINOGEN,URINE 0.2 EU/dL (0.2)
[2021-01-06 19:26] LABS: BACTERIA,URINE None seen /HPF (None Seen); SQUAMOUS EPITHELIAL CELL,UR Few /HPF (None Seen); WBC,URINE 0-2 /HPF (0-3)
--- NOTE | 2021-01-06 19:32 | NUR ---
MOVE SHEET SUBMITTED AND CALLED FOR TELE BED.
--- NOTE | 2021-01-06 20:05 | NUR ---
GOT BED 322-2
--- NOTE | 2021-01-06 20:15 | NUR ---
PAGED PANEL PER DR'S ORDER
--- NOTE | 2021-01-06 20:19 | NUR ---
Report given to ZAIRA Zayas for PAPITO
[2021-01-06 20:45] VITALS: BP 118/70
[2021-01-06 21:00] VITALS: BP 118/70
--- NOTE | 2021-01-06 21:00 | NUR ---
MS ADVERTISING REPRESENTATIVE NOTE Patient is A&Ox4. VSS upon admission. Tele monitor applied. Pupils equal and reactive to light. Movement in al extremities equal. Heart rate and rhythm regular. Lung sounds clear. Bowel sounds x4 quadrants active. Edema and redness to scrotum present and lesion to perineum. wound care consult ordered. No signs of distress. able to make needs known.
[2021-01-06] MEDS ORDERED: MAGNESIUM HYDROXIDE 30 ML UDC PO PRN (21:30)
[2021-01-06] MEDS ORDERED: ONDANSETRON HCL/PF 4 MG/2 ML VIAL IVP PRN (21:30)
[2021-01-06] MEDS ORDERED: Z GUARD REMEDY 2 OZ OINT TP PRN (21:30)
[2021-01-06] MEDS ORDERED: MAG HYDROX/AL HYDROX/SIMETH 30 ML UDC PO PRN (21:30)
[2021-01-06] MEDS ORDERED: HYDROCODONE/APAP 5/325MG TABLET PO PRN (21:30)
[2021-01-06] MEDS ORDERED: MORPHINE SULFATE INJ 2 MG/ML DISP.SYRIN IV PRN (21:30)
[2021-01-06] MEDS ORDERED: POTASSIUM CHLORIDE 20 MEQ TAB.PRT.SR PO ONE (22:00)
[2021-01-06] MEDS ORDERED: ZOLPIDEM TARTRATE 10 MG TABLET PO PRN (23:30)
[2021-01-06] MEDS: ZOLPIDEM TARTRATE 5 MG TABLET PO PRN (23:57)
[2021-01-07] VITALS (7 sets, daily range): BP systolic 96–126; BP diastolic 55–70
[2021-01-07] MEDS: ACETAMINOPHEN 325 MG TABLET PO PRN ×2 (00:12→15:57)
[2021-01-07] MEDS: ENOXAPARIN SODIUM 40 MG/0.4 ML DISP.SYRIN SQ SCH ×2 (00:14→21:12)
[2021-01-07] MEDS: IV NS 0.9% 1,000 ML IV PRN ×2 (00:15→15:57)
--- NOTE | 2021-01-07 00:30 | NUR ---
PRN tylenol given for fever 102.9. will recheck
[2021-01-07] MEDS ORDERED: PIPERACILLIN /TAZOBACTAM 3.375 G VIAL IV ONE ×2 (00:39→06:06)
[2021-01-07] MEDS: ZOSYN IVPB 3.375 G in IV D5W 50ml IV SCH ×5 (00:47→23:10)
[2021-01-07 07:07] LABS: BASOPHILS % (AUTO) 0.1 % (0.0-2.0); EOSINOPHILS % (AUTO) 0.1 % (0.0-6.0); HEMATOCRIT 40 % (39-51); HEMOGLOBIN 13.4 g/dL (13.5-17.5); LYMPHOCYTES # (AUTO) 1.2 K/uL (0.8-4.8); MEAN CORPUSCULAR HGB CONC 34 g/dl (31.0-36.0); MEAN CORPUSCULAR VOLUME 84 fL (80-96); MONOCYTES # (AUTO) 1.2 K/uL (0.1-1.30); MONOCYTES % (AUTO) 7.8 % (2.0-12.0); NEUTROPHILS # (AUTO) 12.6 K/uL (1.8-8.9); PLATELET COUNT (AUTO) 146 K/uL (150-450); RED BLOOD CELL COUNT(AUTO) 4.69 MIL/uL (4.5-6.0)
--- NOTE | 2021-01-07 07:28 | NUR ---
RN NOTES SEEN PATIENT IN BED EATING BREAKFAST, AWAKE AND VERBALLY RESPONSIVE. A/O X4, ABLE TO MAKE NEEDS KNOWN. BREATHING EVEN AND UNLABORED, TOLERATING ROOM AIR. SAFETY MEASURES IN PLACE. ABLE TO AMBULATE TO BATHROOM. WILL CONTINUE TO MONITOR.
--- NOTE | 2021-01-07 07:47 | NUR ---
MS RN CLOSING NOTES Patient has been A&Ox4. VSS. Fever resolved after PRN tylenol administration. Tolerating IVF and IV ABX well. No overnight events. IVs patent and flushed.
[2021-01-07] MEDS: PANTOPRAZOLE 40 MG TABLET.DR PO SCH (07:55)
[2021-01-07 08:10] LABS: CALCIUM, SERUM 8.6 mg/dL (8.5-10.1); MAGNESIUM 1.8 mg/dL (1.8-2.4); PHOSPHORUS 2.2 mg/dL (2.5-4.9); POTASSIUM 3.4 mmol/L (3.5-5.1)
[2021-01-07 08:17] LABS: THYROID STIMULATING HORMONE 1.826 uIU/mL (0.358-3.74)
[2021-01-07] MEDS ORDERED: SULFAMETH/TRIMETH 800/160 MG 1 UDTAB TABLET PO SCH (09:00)
[2021-01-07] MEDS ORDERED: VANCOMYCIN 1.5 GM in IV D5W 500ml IV ONE (09:00)
[2021-01-07] MEDS: LISINOPRIL (5MG) 5 MG TABLET PO SCH (09:13)
[2021-01-07] MEDS: Darunavir/Cobicistat (Prezcobix 800 mg-150 mg Tablet) PO SCH (09:13)
--- NOTE | 2021-01-07 09:59 | NUR ---
WOUND CARE CONSULT: PT PRESENTS WITH PERINEAL LESIONS WITH SURROUNDING REDNESS AND EDEMA WHICH EXTENDS TO PENIS, PRESENT ON ADMISSION. RECOMMEND SURGICAL CONSULT. DR YOUNG BUCIO NOTIFIED OF CONSULT REQUEST. PT IS AMBULATORY AND CONTINENT. IN AGREEMENT WITH PLAN OF CARE. Addendum: 01/07/21 at 1001 by FISH BARCENAS WNDNU Amended: Links added.
[2021-01-07] MEDS ORDERED: POTASSIUM CHLORIDE 20 MEQ TAB.PRT.SR PO SCH ×2 (11:00)
[2021-01-07] MEDS ORDERED: NEUTRA PHOS 1 POWD.PACKET PO ONE (12:00)
[2021-01-07] MEDS: VANCOMYCIN 0.75 GM in IV D5W 250 ML IV SCH (17:03)
[2021-01-07] MEDS: CIPROFLOXACIN IV RTU 400 MG in PREMIX 1 EA IV SCH (18:30)
--- NOTE | 2021-01-07 19:05 | NUR ---
RN NOTES PATIENT IS IN BED RESTING, AWAKE AND VERBALLY RESPONSIVE. BREATHING EVEN AND UNLABORED, CONTINUES ON ROOM AIR, NO DISTRESS NOTED. IV ATB TOLERATED WELL BY PATIENT. LAST TEMP TAKEN AT 99F. AMBULATORY AND CONTINENT. SAFETY MEASURES MAINTAINED. WILL ENDORSE TO RRTS RN FOR PAPITO.
--- NOTE | 2021-01-07 19:17 | NUR ---
RN Opening Notes Patient was last seen sleeping in bed. Patient's alert and oriented x4. Patient's on RA with no respiratory distress noted. Patient has IV accesses on his RAC G#18 and R hand G#22. Patient's in no acute distress at this time. Safety measures in place: Bed locked, side rails up x2, and call light within reach. Will continue to monitor the patient.
[2021-01-07] MEDS: ATORVASTATIN 10 MG TABLET PO SCH (21:08)
[2021-01-07] MEDS: ZOLPIDEM TARTRATE 5 MG TABLET PO PRN (21:09)
--- NOTE | 2021-01-07 23:51 | NUR ---
RN Notes Per patient, his right hand IV access fell off. Patient's IV on his RAC was leaking, so it was removed and the IV site was covered with gauze. A new IV access on patient's left wrist gauge #22 was placed, which is intact and patent. Will continue to monitor the patient.
[2021-01-08] MEDS: VANCOMYCIN 0.75 GM in IV D5W 250 ML IV SCH ×3 (00:35→17:00)
--- NOTE | 2021-01-08 01:48 | NUR ---
RN Notes Patient was made aware to give sample of urine to the lab. Urine specimen cup was left at the patient's bedside table, patient was made aware of that.
--- NOTE | 2021-01-08 03:18 | NUR ---
RN Notes Urine specimen was collected and placed in fridge. Lab was called to pepper picker the specimen. Per lab, they will come pick it up.
[2021-01-08] MEDS: ZOSYN IVPB 3.375 G in IV D5W 50ml IV SCH ×4 (05:25→23:12)
--- NOTE | 2021-01-08 06:35 | NUR ---
RN Closing Notes Patient was last seen sleeping in bed. Patient's alert and oriented x4. Patient's on RA with no respiratory distress noted. Patient has an IV access on his left wrist G#22, which is running NS at 75 ml/hr. Patient's in no acute distress at this time. Safety measures in place: Bed locked, side rails up x2, and call light within reach. Will endorse care to the day shift nurse.
--- NOTE | 2021-01-08 07:10 | NUR ---
MS RN OPENING NOTE PATIENT RECEIVED ON BED ALERT AND ORIENTED X4 WITH NO SIGN OF DISTRESS. PATIENT WITH NO RESPIRATORY DISTRESS WITH EVEN AND UNLABORED BREATHING. WITH IV ACCESS ON RIGHT HAD G20 WITH IV NS 2 75ML/HR, INFUSING WELL. SAFETY ENFORCED WITH BED LOCKED, AND SIDERAILS UP AND BED ON LOWEST POSITION. CALL LIGHT WITHIN REACH AT ALL TIMES. WILL CONTINUE TO MONITOR PATIENT.
[2021-01-08 08:00] VITALS: BP 121/80
[2021-01-08] MEDS: LISINOPRIL (5MG) 5 MG TABLET PO SCH (08:28)
[2021-01-08] MEDS: PANTOPRAZOLE 40 MG TABLET.DR PO SCH (08:28)
[2021-01-08] MEDS: Darunavir/Cobicistat (Prezcobix 800 mg-150 mg Tablet) PO SCH (08:29)
[2021-01-08] MEDS: CIPROFLOXACIN IV RTU 400 MG in PREMIX 1 EA IV SCH (08:29)
[2021-01-08 09:01] LABS: BASOPHILS % (AUTO) 0.1 % (0.0-2.0); EOSINOPHILS % (AUTO) 0.7 % (0.0-6.0); HEMATOCRIT 38 % (39-51); HEMOGLOBIN 12.9 g/dL (13.5-17.5); LYMPHOCYTES # (AUTO) 0.8 K/uL (0.8-4.8); LYMPHOCYTES % (AUTO) 7.3 % (20.0-44.0); MEAN CORPUSCULAR HGB CONC 34 g/dl (31.0-36.0); MEAN CORPUSCULAR VOLUME 84 fL (80-96); MONOCYTES # (AUTO) 0.6 K/uL (0.1-1.30); MONOCYTES % (AUTO) 4.9 % (2.0-12.0); NEUTROPHILS # (AUTO) 10.2 K/uL (1.8-8.9); PLATELET COUNT (AUTO) 154 K/uL (150-450); RED BLOOD CELL COUNT(AUTO) 4.58 MIL/uL (4.5-6.0); WHITE BLOOD COUNT (AUTO) 11.7 K/uL (4.3-11.0)
[2021-01-08 09:23] LABS: CALCIUM, SERUM 8.6 mg/dL (8.5-10.1); CREATININE 1.2 mg/dL (0.6-1.3); MAGNESIUM 1.9 mg/dL (1.8-2.4); PHOSPHORUS 1.5 mg/dL (2.5-4.9)
[2021-01-08] MEDS ORDERED: LIDOCAINE 1%-EPI 1:100,000 20 ML VIAL TP ONE (11:00)
[2021-01-08] MEDS ORDERED: POTASSIUM CHLORIDE 20 MEQ TAB.PRT.SR PO ONE (12:30)
--- NOTE | 2021-01-08 14:00 | NUR ---
MS RN NOTE SEED BY DR. OAKLEY - RECREATION COUNSELOR, WOUND DRBRIDEMENT DONE ORDERED AFTER SECURING CONSENT. PROCEDURE TOLERATED WELL. WITH SUBSTANTIAL DRAINAGE COLLECTED AND SPECIMEN COLLECTED FOR CULTURE.
[2021-01-08] MEDS ORDERED: K PHOS NEUTRAL 250 MG TABLET PO ONE (15:30)
[2021-01-08 16:00] VITALS: BP 119/64
--- NOTE | 2021-01-08 16:00 | NUR ---
MS RN NOTE PATIENT SEEN BY DR. DIAZ OF ID
--- NOTE | 2021-01-08 18:50 | NUR ---
MS RN CLOSING NOTE PATIENT ON BED ALERT AND ORIENTED X4 WITH NO SIGN OF DISTRESS. PATIENT WITH NO RESPIRATORY DISTRESS WITH EVEN AND UNLABORED BREATHING. WITH IV ACCESS ON RIGHT HAD G20 WITH IV NS 2 75ML/HR, INFUSING WELL. PATIENT DID NOT COMPLAIN OF ANY PAIN. SAFETY ENFORCED WITH BED LOCKED, AND SIDERAILS UP AND BED ON LOWEST POSITION. CALL LIGHT WITHIN REACH AT ALL TIMES. ENDORSED TO NEXT SHIFT FOR CONTINUITY OF CARE.
[2021-01-08] MEDS: IV NS 0.9% 1,000 ML IV PRN (18:57)
[2021-01-08 20:00] VITALS: BP 116/71
--- NOTE | 2021-01-08 20:15 | NUR ---
RN Opening Notes Patient was last seen sleeping in bed. Patient's alert and oriented x4. Patient's on RA with no respiratory distress noted. Patient has an IV access on his left wrist G#22, which is running NS at 75 ml/hr. Patient's in no acute distress at this time. Safety measures in place: Bed locked, side rails up x2, and call light within reach. Will continue to monitor the patient.
[2021-01-08] MEDS ORDERED: ZOLPIDEM TARTRATE 10 MG TABLET PO ONE (21:00)
[2021-01-08] MEDS: ENOXAPARIN SODIUM 40 MG/0.4 ML DISP.SYRIN SQ SCH (21:13)
[2021-01-08] MEDS: ATORVASTATIN 10 MG TABLET PO SCH (21:19)
[2021-01-09] MEDS: VANCOMYCIN 0.75 GM in IV D5W 250 ML IV SCH ×3 (00:50→16:13)
[2021-01-09 04:07] LABS: *BASOS 0 % (Not Estab.); *EOS 1 % (Not Estab.); *EOS, ABSOLUTE 0.1 x10E3/uL (0.0-0.4); *HGB 13.4 g/dL (13.0-17.7); *IMMATURE GRANULOCYTES 1 % (Not Estab.); *IMMATURE GRANULOCYTES(ABS) 0.1 x10E3/uL (0.0-0.1); *LYMPHOCYTES 7 % (Not Estab.); *LYMPHS, ABSOLUTE 0.8 x10E3/uL (0.7-3.1); *MCH 28.1 pg (26.6-33.0); *MCHC 33.5 g/dL (31.5-35.7); *MCV 84 fL (79-97); *MONOCYTES 4 % (Not Estab.); *MONOS, ABSOLUTE 0.5 x10E3/uL (0.1-0.9); *NEUTROPHILS 87 % (Not Estab.); *NEUTROPHILS, ABSOLUTE 10.3 x10E3/uL (1.4-7.0); *PLT 151 x10E3/uL (150-450); *RBC 4.77 x10E6/uL (4.14-5.80); *RDW 14.5 % (11.6-15.4)
[2021-01-09] MEDS: ZOSYN IVPB 3.375 G in IV D5W 50ml IV SCH ×3 (05:04→17:50)
--- NOTE | 2021-01-09 06:54 | NUR ---
RN Closing Notes Patient was last seen awake resting in bed. Patient's alert and oriented x4. Patient's on RA with no respiratory distress noted. Patient has an IV access on his left wrist G#22, which is running NS at 75 ml/hr. Patient's in no acute distress at this time. Safety measures in place: Bed locked, side rails up x2, and call light within reach. Will endorse care to the day shift nurse.
[2021-01-09 06:56] LABS: CALCIUM, SERUM 8.9 mg/dL (8.5-10.1); CREATININE 1.1 mg/dL (0.6-1.3); PHOSPHORUS 2.3 mg/dL (2.5-4.9); POTASSIUM 3.2 mmol/L (3.5-5.1)
--- NOTE | 2021-01-09 07:53 | NUR ---
MS RN OPENING NOTES RECEIVED PATIENT IN BED AWAKE. PATIENT IS ALERT AND ORIENTED X 4. NO SIGNS OR SYMPTOMS OF DISTRESS NOTED. PATIENT IS COMPLAINING OF BUBBLE NEAR NOSE AND REDNESS ON LOWER LIP. WILL PLACE AN ORDER FOR WOUND CONSULT. ON ROOM AIR, TOLERATING WELL. BREATHING IS EVEN AND UNLABORED. SAFETY MEASURES IN PLACE WITH BED LOCKED IN LOW POSITION, SIDE RAILS UP X 2. CALL LIGHT IS WITHIN REACH. WILL CONTINUE TO MONITOR THROUGHOUT SHIFT.
[2021-01-09] MEDS: PANTOPRAZOLE 40 MG TABLET.DR PO SCH (08:27)
[2021-01-09] MEDS: Darunavir/Cobicistat (Prezcobix 800 mg-150 mg Tablet) PO SCH (08:37)
[2021-01-09] MEDS: LISINOPRIL (5MG) 5 MG TABLET PO SCH (08:46)
[2021-01-09] MEDS: POTASSIUM CHLORIDE 20 MEQ TAB.PRT.SR PO SCH ×2 (09:36→10:54)
[2021-01-09 10:08] LABS: *% CD 4 POS. LYMPH 18.9 % (30.8-58.5); *% CD 8 POS. LYMPH 45.1 % (12.0-35.5); *ABSOLUTE CD 4 HELPER 151 /uL (359-1519); *ABSOLUTE CD 8 SUPPRESSOR 361 /uL (109-897); *CD4/CD8 RATIO 0.42 (0.92-3.72)
[2021-01-09] MEDS ORDERED: K PHOS NEUTRAL 250 MG TABLET PO ONE (11:00)
--- NOTE | 2021-01-09 19:04 | NUR ---
MS RN CLOSING NOTES PATIENT IN BED AWAKE. PATIENT IS ALERT AND ORIENTED X 4. NO SIGNS OR SYMPTOMS OF DISTRESS NOTED. ON ROOM AIR, TOLERATING WELL. BREATHING IS EVEN AND UNLABORED. ABLE TO MAKE NEEDS KNOWN. ALL MEDICATIONS GIVEN ORDERED.SAFETY MEASURES IN PLACE WITH BED LOCKED IN LOW POSITION, SIDE RAILS UP X 2. CALL LIGHT IS WITHIN REACH. WILL ENDORSE CONTINUITY OF CARE TO NIGHT NURSE.
--- NOTE | 2021-01-09 20:00 | NUR ---
RN OPENING NOTES: RECEIVED PATIENT SLEEP IN BED COMFORTABLY, AROUSABLE TO STIMULI, BED IN LOW POSITION, CALL LIGHTS WITHIN REACH, NO COMPLAIN OF PAIN AND DISCOMFORT AT THIS TIME, PATIENT KEPT CLEAN AND DRY WITH IV LINE AT LEFT WRIST #20 ON 0.9SS@75ML/HR INFUSING WELL, ALL NEEDS MET KEPT CLEAN AND DRY, WILL CONTINUE TO MONITOR.
[2021-01-09 20:41] VITALS: BP 124/73
[2021-01-09] MEDS: ZOLPIDEM TARTRATE 5 MG TABLET PO PRN (21:49)
[2021-01-09] MEDS: ATORVASTATIN 10 MG TABLET PO SCH (21:49)
[2021-01-09] MEDS: ENOXAPARIN SODIUM 40 MG/0.4 ML DISP.SYRIN SQ SCH (22:00)
--- NOTE | 2021-01-09 22:00 | NUR ---
RN NOTES: PATIENT REFUSED LOVENOX EXPLAIN RISK AND BENEFITS BUT STILL REFUSED PATIENT SAID I KNOW ITS BLOOD THINNER BUT NOT TODAY
[2021-01-10] MEDS: ZOSYN IVPB 3.375 G in IV D5W 50ml IV SCH ×4 (00:35→17:01)
[2021-01-10] MEDS: VANCOMYCIN 0.75 GM in IV D5W 250 ML IV SCH (01:50)
--- NOTE | 2021-01-10 06:35 | NUR ---
RN CLOSING NOTES: PATIENT SLEEP IN BED COMFORTABLY, BED IN LOW POSITION, CALL LIGHTS WITHIN REACH, NO COMPLAIN OF PAIN AND DISCOMFORT AT THIS TIME, NO SOB NOTED PATIENT WITH RIGHT WRIST IV #22 OF 0.9NSS@75ML/HR INFUSING WELL, KEPT CLEAN AND DRY, ALL NEEDS MET, ENDORSE TO INCOMING SHIFT.
[2021-01-10 06:37] LABS: BASOPHILS % (AUTO) 0.6 % (0.0-2.0); EOSINOPHILS % (AUTO) 4.2 % (0.0-6.0); HEMATOCRIT 42 % (39-51); HEMOGLOBIN 14.2 g/dL (13.5-17.5); LYMPHOCYTES # (AUTO) 1.2 K/uL (0.8-4.8); LYMPHOCYTES % (AUTO) 17.4 % (20.0-44.0); MEAN CORPUSCULAR HGB CONC 34 g/dl (31.0-36.0); MEAN CORPUSCULAR VOLUME 84 fL (80-96); MONOCYTES # (AUTO) 0.6 K/uL (0.1-1.30); MONOCYTES % (AUTO) 8.6 % (2.0-12.0); NEUTROPHILS # (AUTO) 4.7 K/uL (1.8-8.9); NEUTROPHILS % (AUTO) 69.2 % (43.0-81.0); PLATELET COUNT (AUTO) 213 K/uL (150-450); WHITE BLOOD COUNT (AUTO) 6.8 K/uL (4.3-11.0)
[2021-01-10 07:07] LABS: ALBUMIN 2.8 g/dL (3.4-5.0); BILIRUBIN,TOTAL 0.3 mg/dL (0.2-1.0); MAGNESIUM 2.1 mg/dL (1.8-2.4); PHOSPHORUS 2.9 mg/dL (2.5-4.9); POTASSIUM 3.3 mmol/L (3.5-5.1); TOTAL PROTEIN, SERUM 7.4 g/dL (6.4-8.2)
--- NOTE | 2021-01-10 07:17 | NUR ---
MS RN OPENING NOTES RECEIVED PATIENT IN BED AWAKE. PATIENT IS ALERT AND ORIENTED X 4. PATIENT IS BREATHING EVENLY AND NONLABORED ON ROOM AIR. NO SIGNS OR SYMPTOMS OF DISTRESS NOTED. ON ROOM AIR. PATIENT HAS IV ACCESS ON L WRIST RUNNING NS @ 75 ML/HR. PATIENT HAS NO COMPLAINTS OF PAIN AT THIS TIME. SAFETY MEASURES IN PLACE WITH BED LOCKED IN LOW POSITION, SIDE RAILS UP X 2. CALL LIGHT IS WITHIN REACH. WILL CONTINUE TO MONITOR THROUGHOUT SHIFT.
[2021-01-10 07:54] VITALS: BP 120/74
[2021-01-10] MEDS: Darunavir/Cobicistat (Prezcobix 800 mg-150 mg Tablet) PO SCH (08:08)
[2021-01-10] MEDS: PANTOPRAZOLE 40 MG TABLET.DR PO SCH (08:09)
[2021-01-10] MEDS: LISINOPRIL (5MG) 5 MG TABLET PO SCH (08:09)
[2021-01-10] MEDS ORDERED: POTASSIUM CHLORIDE 20 MEQ TAB.PRT.SR PO SCH (10:00)
--- NOTE | 2021-01-10 10:07 | NUR ---
WOUND CARE CONSULT: RECEIVED CONSULT FOR LIP LESIONS. NO LESIONS NOTED. PT FOLLOWED BY SURGEON FOR PERINEAL LESIONS. WILL SEE PRN.
[2021-01-10 16:03] VITALS: BP 116/66
--- NOTE | 2021-01-10 18:21 | NUR ---
MS RN CLOSING NOTES PATIENT IN BED RESTING PATIENT IS ALERT AND ORIENTED X 4. PATIENT IS BREATHING EVENLY AND NONLABORED ON ROOM AIR. NO SIGNS OR SYMPTOMS OF DISTRESS NOTED. ON ROOM AIR. PATIENT HAS IV ACCESS ON L WRIST RUNNING NS @ 75 ML/HR. PATIENT HAS NO COMPLAINTS OF PAIN AT THIS TIME. WOUND CARE WAS PERFORMED DURING THE SHIFT. ALL MEDICATION GIVEN ORDERED. SAFETY MEASURES IN PLACE WITH BED LOCKED IN LOW POSITION, SIDE RAILS UP X 2. CALL LIGHT IS WITHIN REACH. WILL ENDORSE TO ONCOMING SHIFT
[2021-01-10 20:00] VITALS: BP 136/58
--- NOTE | 2021-01-10 20:00 | NUR ---
MS RN OPENING NOTES: RECEIVED PATIENT AWAKE IN BED, BED IN LOW POSITION, CALL LIGHTS WITHIN REACH, NO COMPLAIN OF PAIN AND DISCOMFORT AT THIS TIME, PATIENT IS ALERT AND ORIENTED AND ABLE TO MAKE NEEDS KNOWN, ALL NEEDS MET, KEPT CLEAN AND DRY, WILL CONTINNUE TO MONITOR,
[2021-01-10] MEDS: ATORVASTATIN 10 MG TABLET PO SCH (22:19)
[2021-01-10] MEDS: ENOXAPARIN SODIUM 40 MG/0.4 ML DISP.SYRIN SQ SCH (22:20)
[2021-01-10] MEDS: ZOLPIDEM TARTRATE 5 MG TABLET PO PRN (22:25)
[2021-01-11] MEDS: ZOSYN IVPB 3.375 G in IV D5W 50ml IV SCH ×2 (00:27→05:43)
--- NOTE | 2021-01-11 06:34 | NUR ---
MS RN CLOSING NOTE: PAIENT SLEEP IN BED COMFORTABLY, BED IN LOW POSITION, CALL LIGHTS WITHIN REACH, NO COMPLAIN OF PAIN AND DISCOMFORT AT THIS TIME, A/OX4 WITH BRP, AMBULATORY WITH IV LINE AT RIGHT WRIST#20 WITH NS@75ML/HR INFUSING WELL, PATIENT KEPT CLEAN AND DRY, ALL NEEDS MET, WILL CONTINUE TO MONITOR.
[2021-01-11 07:23] LABS: CALCIUM, SERUM 9.1 mg/dL (8.5-10.1); CREATININE 1.1 mg/dL (0.6-1.3); POTASSIUM 3.8 mmol/L (3.5-5.1)
--- NOTE | 2021-01-11 07:54 | NUR ---
RN OPENING NOTE PATIENT RECEIVED AO X 4, ABLE TO RESPONDS ALL STIMULI. NO S/S OF DISTRESS OBSERVED. SKIN IS WARM TO TOUCH, KEEP CLEAN/DRY. RESPIRATORY EVEN AND UNLABORED ON ROOM AIR. KEEP ELEVATED HOB FOR ENSURE AIRWAY AND ASPIRATION PRECAUTION, ALSO LOWEST BED POSITION FOR SAFETY. CALL LIGHT WITHIN REACH, WILL CONTINUE TO MONITOR.
[2021-01-11 08:00] VITALS: BP 126/71
[2021-01-11 08:12] VITALS: BP 126/71
[2021-01-11] MEDS: LISINOPRIL (5MG) 5 MG TABLET PO SCH (08:12)
[2021-01-11] MEDS: PANTOPRAZOLE 40 MG TABLET.DR PO SCH (08:12)
[2021-01-11] MEDS: Darunavir/Cobicistat (Prezcobix 800 mg-150 mg Tablet) PO SCH (08:13)
[2021-01-11] MEDS ORDERED: DOXY-326 PO (08:36)
[2021-01-11] MEDS ORDERED: AMOX-427 PO (08:36)
--- NOTE | 2021-01-11 09:50 | NUR ---
PATIENT DISCHARGE TO HOME, GIVEN DISCHARGE INSTRUCTION INCLUDE NEW PO ABX, SIDE EFFECTS AND PATIENT VERBALLY UNDERSTANDING. WOUND PICTURE TAKEN AND HOME MEDICATION RETURNED TO PATIENT BEFORE LEAVE FACILITY, PATIENT IN STABLE CONDITION, VITAL SIGN IS IN NORMAL.
[2021-01-15 20:06] LABS: *HIV-1 log10 RNA 1.301 (.)
== END 2021-01-11 10:10 | disposition home or self-care (01) | DRG 854 ==
LOC: ER 18:18 → TELE 20:09 → MED 01-07 10:44
PROVIDERS: ADMIT Student in an Organized Health Care Education/Training Program; ATTEND Nurse Practitioner Acute Care
PROC: 0JBB0ZZ Excision of Perineum Subcutaneous Tissue and Fascia, Open Approach (ICD-10-PCS; principal; 2021-01-08)
PROC: 0H99XZZ Drainage of Perineum Skin, External Approach (ICD-10-PCS; 2021-01-08)
DX: A41.9 Sepsis, unspecified organism (principal); L02.215 Cutaneous abscess of perineum; E87.1 Hypo-osmolality and hyponatremia; L03.315 Cellulitis of perineum; N49.2 Inflammatory disorders of scrotum; E87.6 Hypokalemia; I10 Essential (primary) hypertension; Z20.822 Contact with and (suspected) exposure to COVID-19; Z85.828 Personal history of other malignant neoplasm of skin; Z79.899 Other long term (current) drug therapy; E83.39 Other disorders of phosphorus metabolism; M43.17 Spondylolisthesis, lumbosacral region; N43.3 Hydrocele, unspecified; Z87.891 Personal history of nicotine dependence
CPT/HCPCS: 36415; 71045-TC; 76870-TC; 80048-TC; 80053-TC; 80061-TC; 80076-TC; 80202-TC; 81001; 83605-TC; 83735-TC; 84100-TC; 84443-TC; 84484-TC; 85025-TC; 85730-TC; 86140-TC; 86360; 87040-TC; 87070-TC; 87081-TC; 87086-TC; 87491; 87536; 87591; 87806; A4216; C9803; G0378; J0692; J0744; J1650; J2543; J3370; J3490; J7030; J7040; J7050; J7060; Q9967

== ENCOUNTER 2023-12-04 02:04 | Inpatient (IN) | payer BC ==
[~2023-12-04] VITALS: Ht 175.3 cm; Wt 61.2 kg
[~2023-12-04 02:04] MED LIST changes: +AMOX-427 PO; +ATOR10TA PO; +DOXY-326 PO; -SULF1TAB48 PO
[2023-12-04] MEDS: MORPHINE SULFATE INJ 2 MG/ML DISP.SYRIN IV ONE (03:00)
[2023-12-04] MEDS: IV NS 0.9% 500 ML BAG IV ONE (03:00)
[2023-12-04] MEDS: ONDANSETRON HCL/PF 4 MG/2 ML VIAL IVP ONE (03:00)
[2023-12-04 03:03] LABS: BASOPHILS # (AUTO) 0.1 K/uL (0.0-0.2); BASOPHILS % (AUTO) 0.5 % (0.0-2.0); EOSINOPHILS # (AUTO) 0.1 K/uL (0.0-0.7); EOSINOPHILS % (AUTO) 0.8 % (0.0-6.0); HEMATOCRIT 34 % (39-51); HEMOGLOBIN 11.5 g/dL (13.5-17.5); LYMPHOCYTES % (AUTO) 10.2 % (20.0-44.0); MEAN CORPUSCULAR HEMOGLOBIN 27 PG (26.0-33.0); MEAN CORPUSCULAR HGB CONC 34 g/dl (31.0-36.0); MEAN CORPUSCULAR VOLUME 81 fL (80-96); MONOCYTES # (AUTO) 0.8 K/uL (0.1-1.30); MONOCYTES % (AUTO) 7.9 % (2.0-12.0); NEUTROPHILS # (AUTO) 7.9 K/uL (1.8-8.9); NEUTROPHILS % (AUTO) 80.6 % (43.0-81.0); PLATELET COUNT (AUTO) 347 K/uL (150-450); RED BLOOD CELL COUNT(AUTO) 4.23 MIL/uL (4.5-6.0); RED CELL DISTRIBUTION WIDTH 15.6 % (11.5-15.0); WHITE BLOOD COUNT (AUTO) 9.8 K/uL (4.3-11.0)
[2023-12-04 03:12] LABS: CALCIUM, SERUM 7.4 mg/dL (8.5-10.1); CARBON DIOXIDE 20 mmol/L (21-32); CHLORIDE 101 mmol/L (98-107); CREATININE 4.8 mg/dL (0.6-1.3); GLUCOSE 104 mg/dL (74-106); POTASSIUM 3.1 mmol/L (3.5-5.1); SODIUM SERUM 133 mmol/L (136-145); UREA NITROGEN, BLOOD 27 mg/dL (7-18)
[2023-12-04 03:15] LABS: INR 1.18 (0.91-1.10); PROTHROMBIN TIME 12.4 SECS (9.2-11.1)
[2023-12-04 03:18] LABS: ALANINE AMINOTRANSFERASE 190 U/L (12-78); ALBUMIN 1.8 g/dL (3.4-5.0); ALKALINE PHOSPHATASE 170 U/L (46-116); ASPARTATE AMINOTRANSFERASE 237 U/L (15-37); BILIRUBIN,DIRECT 0.1 mg/dL (0.0-0.2); BILIRUBIN,TOTAL 0.3 mg/dL (0.2-1.0); LIPASE 117 U/L (16-77); TOTAL PROTEIN, SERUM 7.1 g/dL (6.4-8.2)
[2023-12-04 03:34] LABS: ADD URINE CULTURE NO; APPEARANCE,URINE CLEAR (CLEAR); BACTERIA,URINE Rare /HPF (None Seen); BILIRUBIN,URINE NEGATIVE (NEGATIVE); BLOOD, URINE 2+ Ery/uL (NEGATIVE); COLOR,URINE YELLOW (YELLOW); KETONES,URINE NEGATIVE (NEGATIVE); LEUKOCYTE ESTERASE ,URINE NEGATIVE (NEGATIVE); NITRITE, URINE NEGATIVE (NEGATIVE); PROTEIN,URINE 2+ mg/dl (NEGATIVE); SQUAMOUS EPITHELIAL CELL,UR Few /HPF (None Seen); UGLUCOSE 1+ mg/dL (NEGATIVE); UROBILINOGEN,URINE 0.2 EU/dL (0.2); WBC,URINE 0-2 /HPF (0-3)
[2023-12-04] MEDS ORDERED: CIPROFLOXACIN IV RTU 400 MG in PREMIX 1 EA IV SCH (04:00)
[2023-12-04] MEDS ORDERED: MAGNESIUM HYDROXIDE 30 ML UDC NG PRN (05:00)
[2023-12-04] MEDS ORDERED: MAG HYDROX/AL HYDROX/SIMETH 30 ML UDC NG PRN (05:00)
[2023-12-04] MEDS ORDERED: MAGNESIUM HYDROXIDE 30 ML UDC PO PRN (05:00)
[2023-12-04] MEDS ORDERED: ACETAMINOPHEN 325 MG TABLET PO PRN (05:00)
[2023-12-04] MEDS ORDERED: Z GUARD REMEDY 4 OZ OINT TP PRN (05:00)
[2023-12-04] MEDS ORDERED: MAG HYDROX/AL HYDROX/SIMETH 30 ML UDC PO PRN (05:00)
[2023-12-04] MEDS ORDERED: CIPROFLOXACIN IV RTU 400 MG in PREMIX 1 EA IV ONE (06:00)
[2023-12-04] MEDS ORDERED: METRONIDAZOLE 500MG/ NS 100ML 500 MG in PREMIX 1 EA IV SCH (06:00)
[2023-12-04] MEDS: IV NS 0.9% 1,000 ML IV SCH (06:27)
[2023-12-04] MEDS ORDERED: METRONIDAZOLE 500MG/ NS 100ML 100 ML IV ONE (06:47)
[2023-12-04] MEDS ORDERED: CIPROFLOXACIN IV RTU 200 ML IV ONE (06:47)
[2023-12-04] MEDS ORDERED: POTASSIUM CL. PREMIX PERIPHER. 50 ML ONE (06:47)
[2023-12-04] MEDS: POTASSIUM CHLORIDE 10 MEQ/50 ML PREMIXED IVPB FOR PERIPHERAL LINE IV ONE (06:54)
[2023-12-04 07:00] VITALS: BP 114/79; TEMP 97.9; O2SAT 100
[2023-12-04] MEDS ORDERED: POTASSIUM CHLORIDE 10 MEQ/50 ML PREMIXED IVPB FOR PERIPHERAL LINE IV ONE (07:00)
[2023-12-04] MEDS: FLAGYL/NS RTU 500 MG/100 ML PIGGYBACK IV ONE (07:20)
[2023-12-04] MEDS: METRONIDAZOLE 500MG/ NS 100ML 500 MG in PREMIX 1 EA IV SCH (07:20)
[2023-12-04 08:37] LABS: CALCIUM, SERUM 7.7 mg/dL (8.5-10.1); CREATININE 4.4 mg/dL (0.6-1.3)
[2023-12-04] MEDS ORDERED: LISINOPRIL (10MG) 10 MG TABLET PO SCH (09:00)
[2023-12-04] MEDS ORDERED: Medication Not On Formulary EA (Dolutegravir Sodium (Tivicay) 50 MG) PO SCH (09:00)
[2023-12-04] MEDS: LISINOPRIL (10MG) 10 MG TABLET NG SCH (09:00)
[2023-12-04] MEDS ORDERED: Medication Not On Formulary EA (Dolutegravir Sodium (Tivicay) 50 MG) NG SCH (09:00)
[2023-12-04] MEDS ORDERED: ATORVASTATIN 10 MG TABLET PO SCH (09:00)
[2023-12-04] MEDS: ATORVASTATIN 10 MG TABLET NG SCH (09:00)
[2023-12-04] MEDS ORDERED: DOXYCYCLINE MONOHYDRATE PO SCH (09:00)
[2023-12-04] MEDS ORDERED: AMOX/CLAVULANATE 500 MG TABLET PO SCH (09:00)
[2023-12-04] MEDS: PANTOPRAZOLE 40 MG VIAL IV SCH (09:32)
[2023-12-04] MEDS: ONDANSETRON HCL/PF 4 MG/2 ML VIAL IVP PRN (09:32)
[2023-12-04] MEDS: MORPHINE SULFATE INJ 2 MG/ML DISP.SYRIN IV PRN (09:33)
[2023-12-04] MEDS: POTASSIUM CHLORIDE 20 MEQ TAB.PRT.SR PO ONE (12:30)
[2023-12-04 15:22] LABS: AMPHETAMINE, URINE NEGATIVE (NEGATIVE); BARBITURATE, URINE NEGATIVE (NEGATIVE); BENZODIAZEPINE, URINE NEGATIVE (NEGATIVE); CANNABINOID, URINE NEGATIVE (NEGATIVE); COCCAINE, URINE NEGATIVE (NEGATIVE); OPIATE, URINE NEGATIVE (NEGATIVE); PHENCYCLIDINE SCREEN,URINE NEGATIVE (NEGATIVE)
[2023-12-04] MEDS: POTASSIUM CL. PREMIX PERIPHER. 50 ML IV SCH (15:30)
[2023-12-04 16:00] VITALS: BP 136/93; TEMP 98.2; O2SAT 99
[2023-12-04] MEDS ORDERED: POTASSIUM CHLORIDE 20 MEQ TAB.PRT.SR PO SCH (16:00)
[2023-12-04] MEDS: POTASSIUM CHLORIDE 20 MEQ POWDER PACKET PO ONE (16:30)
[2023-12-04 20:00] VITALS: BP 128/99; TEMP 98.4; O2SAT 100
[2023-12-04] MEDS: IV NS 0.9% 1,000 ML IV PRN (23:25)
[2023-12-04] MEDS: ZOLPIDEM TARTRATE 10 MG TABLET PO PRN (23:30)
[2023-12-05 06:33] LABS: BASOPHILS % (AUTO) 0.4 % (0.0-2.0); EOSINOPHILS # (AUTO) 0.1 K/uL (0.0-0.7); EOSINOPHILS % (AUTO) 0.6 % (0.0-6.0); HEMATOCRIT 30 % (39-51); HEMOGLOBIN 10.1 g/dL (13.5-17.5); LYMPHOCYTES # (AUTO) 1.4 K/uL (0.8-4.8); LYMPHOCYTES % (AUTO) 10.9 % (20.0-44.0); MEAN CORPUSCULAR HEMOGLOBIN 28 PG (26.0-33.0); MEAN CORPUSCULAR HGB CONC 34 g/dl (31.0-36.0); MEAN CORPUSCULAR VOLUME 82 fL (80-96); MONOCYTES # (AUTO) 0.8 K/uL (0.1-1.30); MONOCYTES % (AUTO) 6.6 % (2.0-12.0); NEUTROPHILS # (AUTO) 10.2 K/uL (1.8-8.9); NEUTROPHILS % (AUTO) 81.5 % (43.0-81.0); PLATELET COUNT (AUTO) 266 K/uL (150-450); RED BLOOD CELL COUNT(AUTO) 3.65 MIL/uL (4.5-6.0); RED CELL DISTRIBUTION WIDTH 15.5 % (11.5-15.0); WHITE BLOOD COUNT (AUTO) 12.5 K/uL (4.3-11.0)
[2023-12-05 07:00] VITALS: BP 125/86; TEMP 98.8; O2SAT 99
[2023-12-05 07:21] LABS: ALBUMIN 1.5 g/dL (3.4-5.0); BILIRUBIN,DIRECT 0.1 mg/dL (0.0-0.2); BILIRUBIN,TOTAL 0.2 mg/dL (0.2-1.0); CALCIUM, SERUM 6.8 mg/dL (8.5-10.1); CREATININE 4.1 mg/dL (0.6-1.3); MAGNESIUM 1.5 mg/dL (1.8-2.4); PHOSPHORUS 4.6 mg/dL (2.5-4.9); POTASSIUM 3.5 mmol/L (3.5-5.1); TOTAL PROTEIN, SERUM 5.7 g/dL (6.4-8.2)
[2023-12-05] MEDS ORDERED: DIATR MEGLU/DIATRIZOATE SODIUM 120 ML BOTTLE (GASTROGRAPHIN) ONE (08:17)
[2023-12-05] MEDS ORDERED: POTASSIUM CHLORIDE 20 MEQ POWDER PACKET GT SCH (09:00)
[2023-12-05] MEDS: CIPROFLOXACIN IV RTU 400 MG in PREMIX 1 EA IV SCH (10:38)
[2023-12-05] MEDS ORDERED: Magnesium 1GM/D5W 100ML PREMIX PIGGYBACK IV PRN (14:30)
[2023-12-05] MEDS: Magnesium 1GM/D5W 100ML PREMIX 100 ML IV SCH (14:47)
[2023-12-05 16:00] VITALS: BP 115/88; TEMP 97.9; O2SAT 98
[2023-12-05 20:00] VITALS: BP 151/97; TEMP 98.2; O2SAT 100
[2023-12-05 21:14] VITALS: BP 151/97; TEMP 98.2; O2SAT 100
[2023-12-06 06:54] LABS: BASOPHILS # (AUTO) 0.1 K/uL (0.0-0.2); BASOPHILS % (AUTO) 0.7 % (0.0-2.0); EOSINOPHILS # (AUTO) 0.2 K/uL (0.0-0.7); EOSINOPHILS % (AUTO) 1.6 % (0.0-6.0); HEMATOCRIT 29 % (39-51); HEMOGLOBIN 9.8 g/dL (13.5-17.5); LYMPHOCYTES # (AUTO) 1.3 K/uL (0.8-4.8); LYMPHOCYTES % (AUTO) 13.8 % (20.0-44.0); MEAN CORPUSCULAR HEMOGLOBIN 28 PG (26.0-33.0); MEAN CORPUSCULAR HGB CONC 34 g/dl (31.0-36.0); MEAN CORPUSCULAR VOLUME 81 fL (80-96); MONOCYTES # (AUTO) 0.8 K/uL (0.1-1.30); MONOCYTES % (AUTO) 7.9 % (2.0-12.0); NEUTROPHILS # (AUTO) 7.3 K/uL (1.8-8.9); PLATELET COUNT (AUTO) 256 K/uL (150-450); RED BLOOD CELL COUNT(AUTO) 3.58 MIL/uL (4.5-6.0); RED CELL DISTRIBUTION WIDTH 15.7 % (11.5-15.0); WHITE BLOOD COUNT (AUTO) 9.6 K/uL (4.3-11.0)
[2023-12-06 07:17] LABS: ALBUMIN 1.5 g/dL (3.4-5.0); BILIRUBIN,DIRECT 0.1 mg/dL (0.0-0.2); BILIRUBIN,TOTAL 0.2 mg/dL (0.2-1.0); CREATININE 3.8 mg/dL (0.6-1.3); TOTAL PROTEIN, SERUM 5.5 g/dL (6.4-8.2)
[2023-12-06 07:40] LABS: POTASSIUM 2.8 mmol/L (3.5-5.1)
[2023-12-06 08:10] VITALS: BP 116/80; TEMP 98.7; O2SAT 100
[2023-12-06] MEDS: COBICISTAT PO SCH (09:00)
[2023-12-06] MEDS: DARUNAVIR PO SCH (09:00)
[2023-12-06] MEDS ORDERED: POTASSIUM CL. PREMIX PERIPHER. 50 ML IV SCH (12:00)
[2023-12-06] MEDS ORDERED: CIPR500S2 PO (12:04)
[2023-12-06] MEDS ORDERED: METR500T PO (12:04)
[2023-12-06] MEDS ORDERED: POTA20TA83 PO (12:10)
[2023-12-06] MEDS ORDERED: MAGN400T52 PO (12:10)
== END 2023-12-06 12:45 | disposition home or self-care (01) | DRG 372 ==
LOC: ER 02:05 → TELE 05:06 → MED 08:32
PROVIDERS: ADMIT Nurse Practitioner Acute Care; ATTEND Nurse Practitioner Acute Care
DX: A04.9 Bacterial intestinal infection, unspecified (principal); E44.0 Moderate protein-calorie malnutrition; K56.600 Partial intestinal obstruction, unspecified as to cause; N17.9 Acute kidney failure, unspecified; Z68.1 Body mass index [BMI] 19.9 or less, adult; D63.8 Anemia in other chronic diseases classified elsewhere; E78.5 Hyperlipidemia, unspecified; E83.42 Hypomagnesemia; E86.0 Dehydration; E83.51 Hypocalcemia; E88.09 Other disorders of plasma-protein metabolism, not elsewhere classified; E87.6 Hypokalemia; Z87.891 Personal history of nicotine dependence; D72.829 Elevated white blood cell count, unspecified; R74.01 Elevation of levels of liver transaminase levels; I12.9 Hypertensive chronic kidney disease with stage 1 through stage 4 chronic kidney disease, or unspecified chronic kidney disease; D63.1 Anemia in chronic kidney disease
CPT/HCPCS: 36415; 71045-TC; 74250-TC; 80048-TC; 80076-TC; 81001; 83690-TC; 83735-TC; 84100-TC; 84484-TC; 85025-TC; 85730-TC; 86850-TC; A4216; A4223; C9113; G0378; J0744; J2270; J2405; J3475; J3480; J7030; Q9963